=== PATIENT | female | born 1965 | race Caucasian/White ===

== ENCOUNTER → 2016-07-06 | Outpatient (CLI) | payer OTHER ==
[~2016-07-06] MED LIST: CHOL100010 PO; CLR10 PO; CYAN100T6 PO; ESCI10TA17 PO; PYRI100T4 PO; ZOLP6.252 PO
== END | disposition home or self-care (01) ==
LOC: C.PAPS 10:47
PROVIDERS: ATTEND Obstetrics & Gynecology
DX: Z12.4 Encounter for screening for malignant neoplasm of cervix (principal); R87.616 Satisfactory cervical smear but lacking transformation zone

== ENCOUNTER → 2016-12-15 | Outpatient (CLI) | payer OTHER ==
[2016-12-15 09:59] LABS: ALT/SGPT 24 U/L (12-78); AST/SGOT 25 U/L (15-37); BLOOD UREA NITROGEN 14 mg/dl (7-18); CALCIUM 8.6 mg/dl (8.5-10.1); CARBON DIOXIDE 29 mmol/L (21-32); CHLORIDE 108 mmol/L (98-107); GLUCOSE 91 mg/dl (70-99); MAGNESIUM 2.1 mg/dl (1.8-2.4); POTASSIUM 3.9 mmol/L (3.5-5.1); SODIUM 140 mmol/L (136-145)
[2016-12-15 10:08] LABS: ALB/GLOB RATIO 0.9 (0.9-2); ALKALINE PHOSPHATASE 61 U/L (45-117); CHOLESTEROL 185 mg/dl (0-200); CHOLESTEROL/HDL RATIO 2.6; HDL CHOLESTEROL 70 mg/dl; LDL CHOLESTEROL CALCULATED 90 mg/dl; THYROID STIMULATING HORMONE 0.454 uIu/ml (0.300-4.500); TRIGLYCERIDES 125 mg/dl (0-150); VERY LOW DENSITY LIPOPROT CALC 25 mg/dl
== END | disposition home or self-care (01) ==
LOC: C.LAB 08:21
PROVIDERS: ATTEND Nurse Practitioner Family
DX: Z00.00 Encounter for general adult medical examination without abnormal findings (principal); Z13.220 Encounter for screening for lipoid disorders; G47.00 Insomnia, unspecified; K21.0 Gastro-esophageal reflux disease with esophagitis; Z11.59 Encounter for screening for other viral diseases

== ENCOUNTER → 2017-10-10 | Outpatient (CLI) | payer OTHER | END | disposition home or self-care (01) | LOC: C.PAPS 17:59 | PROVIDERS: ATTEND Obstetrics & Gynecology | DX: Z12.4 Encounter for screening for malignant neoplasm of cervix (principal) ==

== ENCOUNTER 2019-03-07 13:38 | Observation (INO) ==
[2019-03-07] MEDS ORDERED: SODIUM CHLORIDE 0.9% 1000ML 1,000 ML IV ONE (14:02)
[2019-03-07] MEDS ORDERED: KETOROLAC TROMETHAMINE 15 MG/ML VIAL IV STA (14:02)
[2019-03-07] MEDS ORDERED: ONDANSETRON INJ 2 MG/ML 2 ML VIAL IV STA (14:02)
[2019-03-07 14:19] LABS: Basophils # (auto) 0.02 K/uL (0-0.2); Basophils % (auto) 0.2 %; Eosinophils # (auto) 0.14 K/uL (0-0.5); Eosinophils % (auto) 1.2 %; Hematocrit (blood only) 40.9 % (37-47); Hemoglobin 13.7 g/dL (12.0-16.0); Immature Granulocytes # (auto) 0.03 K/uL (0.00-0.02); Immature Granulocytes % (auto) 0.2 %; Lymphocytes # (auto) 1.31 K/uL (1.2-3.4); Lymphocytes % (auto) 10.8 %; Mean Corpuscular Hemoglobin 30.2 pg (25-34); Mean Corpuscular Hgb Conc 33.5 g/dL (32-36); Mean Corpuscular Volume 90.1 fL (80-100); Mean Platelet Volume 9.9 fL (7.4-10.4); Monocytes # (auto) 0.39 K/uL (0.11-0.59); Monocytes % (auto) 3.2 %; Neutrophils # (auto) 10.24 K/uL (1.4-6.5); Neutrophils % (auto) 84.4 %; Platelet Count 294 K/uL (130-400); RDW Coefficient of Variation 12.7 % (11.5-14.5); Red Blood Count 4.54 M/uL (4.2-5.4); White Blood Count 12.13 K/uL (4.8-10.8)
[2019-03-07 14:30] LABS: Partial Thromboplastin Time 27.2 Seconds (21.0-31.0); Prothrombin Time 9.8 Seconds (9.0-12.0)
[2019-03-07 14:31] LABS: D Dimer 910 ug/L FEU (0-500)
[2019-03-07 14:36] LABS: Alanine Aminotransferase 41 U/L (12-78); Albumin Level 3.5 gm/dl (3.4-5.0); Aspartate Aminotransferase 53 U/L (15-37); BUN Creatinine Ratio 13.4 (10-20); Bilirubin Direct < 0.1 mg/dl (0-0.2); Blood Urea Nitrogen 13 mg/dl (7-18); Calcium 9.2 mg/dl (8.5-10.1); Carbon Dioxide 26 mmol/L (21-32); Chloride 106 mmol/L (98-107); Creatinine Clr Calc Pharmacy 62.1 ml/min; Est GFR (African American) 76.7; Est GFR (Non-African American) 66.2; Glucose 109 mg/dl (70-99); Lipase 122 U/L (73-393); Potassium 3.5 mmol/L (3.5-5.1); Sodium 138 mmol/L (136-145)
[2019-03-07 14:41] LABS: Alkaline Phosphatase 101 U/L (45-117); Bilirubin,Total 0.3 mg/dl (0.2-1); Total Protein 8.1 gm/dl (6.4-8.2); Troponin I < 0.015 ng/ml (0-0.045)
--- NOTE | 2019-03-07 14:46 | XRay Report ---
XR abdomen 2V w PA chest CLINICAL HISTORY: 53 years-old Female presenting with epigastric pain. TECHNIQUE: PA view of the chest and supine and upright views of the abdomen were obtained. COMPARISON: None. FINDINGS: Cardiomediastinal silhouette normal. Lungs are hyperinflated. No focal opacity. No large effusion or pneumothorax. Mild gaseous distention of the stomach. Nonobstructive bowel gas pattern. No gross pneumoperitoneum. Allowing for bowel gas and stool, no calcifications to suggest nephrolithiasis. Calcifications in the pelvis could relate to degenerated fibroids. Dextroscoliotic curvature of the thoracic spine and compensatory levoscoliotic curvature of the lumba r spine. IMPRESSION: 1. No acute cardiopulmonary disease. 2. Mild gaseous distention of the stomach, nonspecific. No bowel obstruction. 3. S-shaped scoliotic curvature of the spine. ACT 112: Negative or not required by law. Electronically signed by: Sarthak Adorno M.D. 03/07/2019 2:45 PM
[2019-03-07] MEDS ORDERED: IOVERSOL 100ml IV PRN (15:02)
--- NOTE | 2019-03-07 15:07 | Ultrasound Report ---
ULTRASOUND RIGHT UPPER QUADRANT ABDOMEN CLINICAL HISTORY: Right upper quadrant abdominal pain. COMPARISON STUDY: Abdominal CT dated 07/13/2011. TECHNIQUE: Real-time, grayscale, and color flow sonography of the right upper quadrant of the abdomen was performed. Images are reviewed in the transverse and longitudinal planes. FINDINGS: Liver: The liver is normal in size and echotexture. There is no intrahepatic biliary ductal dilatatio n. The main portal vein is patent. Gallbladder: There are numerous small shadowing gallstones. The gallbladder is distended. There is no gallbladder wall thickening or pericholecystic fluid. A sonographic Dior's sign is reportedly abse nt. The common bile duct measures up to 0.4 cm in diameter. Pancreas: Visualized portions of the pancreatic head and body are normal in appearance. The splenic v ein is patent. Right kidney: Survey images of the right kidney demonstrate normal size and echotexture. There is no hydronephrosis. Ascites: None. IMPRESSION: 1. Cholelithiasis with a distended gallbladder. A sonographic Dior's sign is reportedly absent and the gallbladder wall is not thickened. Findings are equivocal for acute cholecystitis which is not en tirely excluded. If clinically warranted a nuclear hepatobiliary scan could be considered for further assessment. 2. There is no intra or extrahepatic iliac artery ductal dilatation. ACT 112: Negative or not required by law. Electronically signed by: Quique Cowan M.D. 03/07/2019 3:05 PM
--- NOTE | 2019-03-07 15:12 | CT Scan Report ---
CT angio chest PE protocol CLINICAL HISTORY: 53 years-old Female presenting with left-sided chest pain, clinical concern for pul monary embolus. TECHNIQUE: Multidetector CT angiography of the chest was performed after administration of intravenou s contrast. 3-D volumetric and/or maximum intensity projection (MIP) images were subsequently reconst ructed for review. IV contrast: 77 mL of Optiray 320. One or more dose lowering techniques were used consistent with the principles of ALARA (as low as reasonably achievable), including automatic exposu re control, mA or kV adjustment to individual patient size, and/or use of iterative reconstruction. COMPARISON: None. CT DOSE (mGy.cm): The estimated cumulative dose is 262.17 mGy.cm. FINDINGS: Pile Driver Operator topogram: Unremarkable. Pulmonary vasculature: The study is adequate for assessment of the pulmonary vascular tree. No filling defect within the pul monary arteries to suggest embolus. Main pulmonary artery is not enlarged. No flattening of the inter ventricular septum. No intracardiac filling defect. No reflux of contrast into the hepatic veins. Remaining chest: Soft tissues: Normal thyroid and thoracic inlet. No axillary, supraclavicular, mediastinal, or hilar lymphadenopathy. Normal aorta. Normal heart size. No pericardial or pleural effusion. Upper abdomen n ormal. Lungs and airways: No pneumothorax. Central airways patent. Pulmonary arteries are not significantly enlarged relative to adjacent bronchi. No interlobular septal thickening. Minimal dependent changes l ikely atelectasis. 3 mm solid nodule in the anterior segment of the right upper lobe (series 4 image 145). Calcified granuloma in the right lower lobe. Solid 4 mm peripheral right lower lobe nodule (ser ies 4 image 128). Solid triangular peribronchovascular 4 mm nodule in the superior lingula (series 4 image 150). Musculoskeletal: Normal osseous structures. IMPRESSION: 1. No evidence of pulmonary embolus. No acute intrathoracic pathology. 2. Multiple solid pulmonary nodules measuring up to 4 mm. Follow-up per Fleischner Society 2017 darrell mmendations below. Summary of Fleischner Society 2017 Recommendations (Bib Myers et al. Guidelines for management of i ncidental pulmonary nodules detected on CT images: From the Fleischner Society 2017. Radiology 2017; 284: 228-243.) SOLID NODULES Single nodule; size < 6 mm * Low risk patients: No routine follow-up * High risk patients: Optional CT at 12 months Single nodule; size 6-8 mm * Low risk patients: CT at 6-12 months, then consider CT at 18-24 months * High risk patients: CT at 6-12 months, then at 18-24 months Single nodule; size > 8 mm * Either low or high risk patients: Considered CT at 3 months, PET/CT, or tissue sampling Multiple nodules; size < 6 mm * Low risk patients: No routine follow up * High risk patients: Optional CT at 12 months Multiple nodules; size 6-8 mm * Low risk patients: CT at 3-6 months, then consider CT at 18-24 months * High risk patients: CT at 3-6 months, then at 18-24 months Multiple nodules; size > 8 mm * Low risk patients: CT at 3-6 months, then consider at 18-24 months * High risk patients: CT at 3-6 months, then at 18-24 months SUBSOLID NODULES Single ground-glass nodule * Nodule size < 6 mm: No routine follow-up * Nodule size > or = 6 mm: CT at 6-12 months to confirm persistence, then CT every 2 years until 5 y ears Single part-solid nodule * Nodule size < 6 mm: No routine follow-up * Nodules size > or = 6 mm: CT at 3-6 months to confirm persistence. If unchanged and solid componen t remains < 6 mm, annual CT should be performed for 5 years Multiple nodules * Nodule size < 6 mm: CT at 3-6 months. If stable, consider CT at 2 and 4 years. * Nodules size > or = 6 mm: CT at 3-6 months. Subsequent management based on the most suspicious nod ule(s) NOTE: 1) These guidelines apply to incidental nodules. These guidelines do NOT apply to patients younger th an 35 years, immunocompromised patients, or patients with cancer. 2) Risk categories: * Low risk patients: Minimal or absent history of smoking and/or other known risk factors * High risk patients: History of smoking, exposure to other carcinogens, emphysema, fibrosis, upper lobe location, family history of lung cancer, etc. 3) If a nodule up to 8 mm is partly solid or is ground glass, further follow-up is required after 24 months to exclude possible slow growing adenocarcinoma. ACT 112: Negative or not required by law. Electronically signed by: Sarthak Adorno M.D. 03/07/2019 3:11 PM
[2019-03-07] MEDS ORDERED: cefTRIAXone SODIUM 1,000 MG/50 ML BAG IV STA (15:43)
[2019-03-07] MEDS ORDERED: metroNIDAZOLE 500 MG/100 ML BAG IV STA (15:43)
--- NOTE | 2019-03-07 16:26 | History & Physical Report ---
Date of Service March 07, 2019 Assessment & Plan (1) Abdominal pain: 53-year-old female was admitted on 07 March 2019 for abdominal pain and cholelithiasis, possible cholecystitis. Abdominal pain, Cholelithiasis: Acute onset of upper abdominal pain overnight, worsening this a.m. Positive N/V without diarrhea or known fever. No known underlying gallbladder disease. Presently positive [place] sign but not peritoneal in general abdomen. DDx include acute cholecystitis vs other g allbladder path vs acute gastritis. - In ED, afebrile, some periods of bradycardia, transiently hypertensive, with normal room SpO2. WBC 12. AST 53, ALT + AP + lipase all negative. Troponin negative. Right upper ultrasound notes cholelithiasis with a distended gallbladder, overall equivocal for acute cholecystitis. - In ED, treated with normal saline IVF, Toradol, Zofran, and given single doses of ceftriaxone + Flagyl. - Will continue pain control with toradol IV prn initially and general surgery consult. Continue on cefuroxime and flagyl as well. - Ordered HIDA scan (goal for 8 am tomorrow). Request no pain medications between midnight and 8 am. Notify on-call hospitalist if issues. - History of tubal ligation, but will still check urine hCG as a precaution. Pulmonary nodules: Seen on CTA chest evaluation for PE (negative for this). Follow-up per guidelines and PCP. Informed patient of the same. Ongoing medical issues: - Reflux esophagitis: Patient says diagnosis was years ago and does not take medication for this. - Depression: Continue home escitalopram. - Perimenopausal vasomotor symptoms: Continue home Premphase. - ? CARLOS ALBERTO: Pending home sleep study. Will provide CPAP while here. Code status: Full code. Diet: NPO (including meds) after midnight for planned HIDA scan. DVT prophy: SCDs for now given may have surgery acutely. PT/OT: Deferred. Disbo: Admit to medsurg for observation. (2) Cholelithiasis: (3) Pulmonary nodule seen on imaging study: (4) Reflux esophagitis: (5) Depression: (6) Perimenopausal vasomotor symptoms: History of Present Illness Primary Care Provider: Nathan Rocha III, MEDIA MARKETING SPECIALIST 53-year-old female says that around 10:30 PM last night she had the feeling of "indigestion". She has had similar feeling about 3 times in the past 2 months. She was able to get some sleep but woke up with the same discomfort. This p rogressively worsened to include nonbloody but positive bilious nausea and vomiting this a.m. Presently points to her epigastric and bilateral upper quadrants as site of discomfort. Denies any diarrhea and had a normal bowel movement this morning. No recent fevers or known recent illness. Denies any known previous gallbladder issues, urinary symptoms, chest pain or shortness of breath, or other acute concerns. - Past medical history includes insomnia, depression, reflux esophagitis, menorrhagia, diverticulosis. - Past surgical history includes tubal ligation, breast surgery. - Social history includes denying tobacco use. Occasional beer drinker on the weekends. Lives with daughter. 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 Allergies Allergy/AdvReac Type Severity Reaction Status Date / Time No Known Drug Allergies Allergy Verified 03/07/19 15:14 Home Medications Home Medications Medication Instructions Recorded Confirmed Type conj estrogen-medroxyprogesterone 1 tab PO DAILY #28 tab 11/15/18 03/07/19 Rx 0.625 mg(14)/0.625 mg-5mg(14) tablet escitalopram oxalate 20 mg tablet 20 mg PO DAILY #90 tab 11/20/18 03/07/19 Rx loratadine 10 mg tablet 10 mg PO DAILY 01/08/19 03/07/19 History zolpidem 6.25 mg tablet,extended 6.25 mg PO HS PRN #10 tab 01/20/19 03/07/19 Rx release,multiphase cholecalciferol (vitamin D3) 5,000 5,000 units PO DAILY #30 cap 02/12/19 03/07/19 Rx unit capsule Past Med/Surg History Medical History History of breast pain Tuboplasty or vasoplasty after previous sterilization Surgical History Hx of breast surgery S/P tubal ligation Family History Sister Breast cancer Father Malignant neoplasm of skin Social History Preferred Language: Kiswahili Communication Ability: Effective Drill Operator Required: No Beliefs That Will Affect Care: None marital status: Seperated marital status details: Legally seperated with pending divorce Current Living Situation: Family Current Living Situation Comment: w/ daughter current occupational status: employed 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 Other Information That Helps Us Care for You: No Feels Safe at Home: Yes Safety Concerns: Feels Safe At This Time Smoking Status: Never smoker Do You Dip or Chew Tobacco: No ; Second Hand Exposure: No ; Tobacco Cessation Education Requested by Patient: No Hx Alcohol Use: Yes Alcohol type: beer Alcohol Intake Frequency: Weekly Alcohol Intake Frequency Comment: 4/week Hx Substance Use: No Other Diet Comment: no specific diet caffeine: Yes (three cups a day) during the past year weight has: remained stable Dental Care, Regularly: Yes Physical Activity Frequency: Does not Exercise Seatbelt Use: always Do you think of yourself as: straight/heterosexual Review of Systems Review of Systems: Constitutional: Denies fevers, chills, focal weakness Eyes: Denies any visual loss or diplopia ENT: Denies any ear/nose/throat pain or difficulty speaking or swallowing Respiratory: Denies any dyspnea, cough, hemoptysis Cardiovascular: Denies any chest pain or feeling of edema Gastrointestinal: Positive nausea, vomiting, and abdominal pain. Denies diarrhea. Musculoskeletal: Denies any acute extremity pains, myalgias, or focal weakness Skin: Denies any known acute rashes or lesions Neuro: Denies any headache, acute focal weakness or numbness, or difficulties with speech or swallow. Physical Exam Physical Exam: GENERAL: Awake, alert, well-appearing, in no acute distress. HENT: Normocephalic, atraumatic. Oropharynx unremarkable. EYES: Normal conjunctiva. Sclera non-icteric. NECK: Inspection normal. Supple and full ROM. No nuchal rigidity. CARDIAC: +S1S2 RRR, no murmurs. RESPIRATORY: Clear to auscultation. No wheezes or rales. Normal respiratory effort. GI: +BS, soft, non-distended. No rebound or guarding. Positive right > left upper abdominal tenderness to palpation. No tenderness in bilateral lower quad rants. Positive Dior sign. EXTREMITIES: No pedal edema or calf tenderness. Moving all extremities naturally and easily. NEURO: No gross neuro deficits. Results & Data Vital Signs (Past 12 Hours) Vital Signs Temp Pulse Resp BP Pulse Ox 03/07/19 15:05 74 24 121/57 L 97 03/07/19 15:04 76 12 03/07/19 14:30 127/68 98 03/07/19 14:20 51 L 14 96 03/07/19 14:19 52 L 15 152/66 H 97 03/07/19 14:00 59 L 20 03/07/19 13:58 97 03/07/19 13:57 53 L 15 03/07/19 13:39 36.8 C 79 20 150/63 H 97 Laboratory Results 03/07/19 03/07/19 03/07/19 Range/Units 13:54 13:54 13:54 WBC (4.8-10.8) K/uL RBC (4.2-5.4) M/uL Hgb (12.0-16.0) g/dL Hct (37-47) % MCV (80-100) fL MCH (25-34) pg MCHC (32-36) g/dL RDW Std Deviation (36.4-46.3) fL RDW Coeff of Red (11.5-14.5) % Plt Count (130-400) K/uL MPV (7.4-10.4) fL Immature Gran % (Auto) % Neut % (Auto) % Lymph % (Auto) % Cooke % (Auto) % Eos % (Auto) % Baso % (Auto) % Immature Gran # (Auto) (0.00-0.02) K/uL Neut # (Auto) (1.4-6.5) K/uL Lymph # (Auto) (1.2-3.4) K/uL Cooke # (Auto) (0.11-0.59) K/uL Eos # (Auto) (0-0.5) K/uL Baso # (Auto) (0-0.2) K/uL PT 9.8 (9.0-12.0) Seconds INR 1.0 (0.9-1.1) APTT 27.2 (21.0-31.0) Seconds PTT Ratio 1.0 D-Dimer Cancelled 910 H* (0-500) ug/L FEU Sodium 138 (136-145) mmol/L Potassium 3.5 (3.5-5.1) mmol/L Chloride 106 (98-107) mmol/L Carbon Dioxide 26 (21-32) mmol/L Anion Gap 7.0 (3-11) BUN 13 (7-18) mg/dl Creatinine 0.97 (0.6-1.2) mg/dl Est Cr Clr Drug Dosing 62.1 ml/min Est GFR ( Amer) 76.7 Est GFR (Non-Af Amer) 66.2 BUN/Creatinine Ratio 13.4 (10-20) Glucose 109 H (70-99) mg/dl Calcium 9.2 (8.5-10.1) mg/dl Total Bilirubin 0.3 (0.2-1) mg/dl Direct Bilirubin < 0.1 (0-0.2) mg/dl AST 53 H (15-37) U/L ALT 41 (12-78) U/L Alkaline Phosphatase 101 (45-117) U/L Troponin I < 0.015 (0-0.045) ng/ml Total Protein 8.1 (6.4-8.2) gm/dl Albumin 3.5 (3.4-5.0) gm/dl Lipase 122 (73-393) U/L 03/07/19 Range/Units 13:54 WBC 12.13 H (4.8-10.8) K/uL RBC 4.54 (4.2-5.4) M/uL Hgb 13.7 (12.0-16.0) g/dL Hct 40.9 (37-47) % MCV 90.1 (80-100) fL MCH 30.2 (25-34) pg MCHC 33.5 (32-36) g/dL RDW Std Deviation 42.0 (36.4-46.3) fL RDW Coeff of Red 12.7 (11.5-14.5) % Plt Count 294 (130-400) K/uL MPV 9.9 (7.4-10.4) fL Immature Gran % (Auto) 0.2 % Neut % (Auto) 84.4 % Lymph % (Auto) 10.8 % Cooke % (Auto) 3.2 % Eos % (Auto) 1.2 % Baso % (Auto) 0.2 % Immature Gran # (Auto) 0.03 H (0.00-0.02) K/uL Neut # (Auto) 10.24 H (1.4-6.5) K/uL Lymph # (Auto) 1.31 (1.2-3.4) K/uL [place]oke # (Auto) 0.39 (0.11-0.59) K/uL Eos # (Auto) 0.14 (0-0.5) K/uL Baso # (Auto) 0.02 (0-0.2) K/uL PT (9.0-12.0) Seconds INR (0.9-1.1) APTT (21.0-31.0) Seconds PTT Ratio D-Dimer (0-500) ug/L FEU Sodium (136-145) mmol/L Potassium (3.5-5.1) mmol/L Chloride (98-107) mmol/L Carbon Dioxide (21-32) mmol/L Anion Gap (3-11) BUN (7-18) mg/dl Creatinine (0.6-1.2) mg/dl Est Cr Clr Drug Dosing ml/min Est GFR ( Amer) Est GFR (Non-Af Amer) BUN/Creatinine Ratio (10-20) Glucose (70-99) mg/dl Calcium (8.5-10.1) mg/dl Total Bilirubin (0.2-1) mg/dl Direct Bilirubin (0-0.2) mg/dl AST (15-37) U/L ALT (12-78) U/L Alkaline Phosphatase (45-117) U/L Troponin I (0-0.045) ng/ml Total Protein (6.4-8.2) gm/dl Albumin (3.4-5.0) gm/dl Lipase (73-393) U/L Medications Administered Ioversol (Optiray 320 100ml) 77 ml IV ONCE PRN PRN Reason: Interaction Checking Stop: 03/11/19 15:01 Last Admin: 03/07/19 15:03 Dose: 77 ml Documented by: [id number] Discontinued Medications Sodium Chloride (Nss 1000ml) 1,000 mls @ 999 mls/hr IV .Q1H1M ONE Stop: 03/07/19 15:02 Last Infusion: 03/07/19 15:20 Dose: 0 mls/hr Documented by: [id number] Admin: 03/07/19 14:19 Dose: 999 mls/hr Documented by: [id number] Ceftriaxone Sodium (Rocephin) 1,000 mg in 50 mls @ 100 mls/hr IV NOW STA Stop: 03/07/19 16:12 Last Admin: 03/07/19 15:49 Dose: 100 mls/hr Documented by: [id number] Ketorolac Tromethamine (Toradol) 15 mg IV NOW STA Stop: 03/07/19 14:03 Last Admin: 03/07/19 14:20 Dose: 15 mg Documented by: [id number] Ondansetron HCl (Zofran) 4 mg IV NOW STA Stop: 03/07/19 14:03 Last Admin: 03/07/19 14:20 Dose: 4 mg Documented by: [id number] Code Status & VTE Plan Code Status Full code VTE Prophylaxis Plan VTE Prophylaxis will be ordered: Yes Supervising Physician Co-Signing Physician Notes Pt seen and examined at the bedside with . I was involved in creating assessment and plan with Dr. Fowler and I agree with his H&P. Physical Exam: GENERAL: Awake, alert, well-appearing, in no acute distress. HENT: Normocephalic, atraumatic. Oropharynx unremarkable. EYES: Normal conjunctiva. Sclera non-icteric. NECK: Inspection normal. Supple and full ROM. No nuchal rigidity. CARDIAC: +S1S2 RRR, no murmurs. RESPIRATORY: Clear to auscultation. No wheezes or rales. Normal respiratory effort. GI: +BS, soft, non-distended. No rebound or guarding. Positive right > left upper abdominal tenderness to palpation. No tenderness in bilateral lower quadrants. Positive Dior sign. EXTREMITIES: No pedal edema or calf tenderness. Moving all extremities naturally and easily. NEURO: No gross neuro deficits. Resident Activity Tracking Resident Involvement: Resident Care Provided Care Provided: Adult [facility]
--- NOTE | 2019-03-07 17:11 | Surgery Consultation ---
Date of Consultation March 07, 2019 Assessment & Plan (1) Abdominal pain: 53 year-old female with 1 day history of upper abdominal pain with associated bloating. labs show mild leukocytosis of 12k with mild elevation in AST. Ultrasound showing distended gallbladder with gallstones however no pericholecystic fluid or gallbladder wall thickening. She does have history GERD with dysphagia with EGD 5 years ago. t. bili and rest of LFTS wnl. DDX: gastritis, biliary colic, early acute cholecystitis vs chronic cholecystitis Plan: Medicine admitting patient. Plan for HIDA scan in morning to r/o acute cholecystitis. If negative patient can be seen as outpatient to schedule elective lap kaila if she continues to have symptoms of biliary colic. If HIDA scan positive, plan for cholecystectomy tomorrow IV fluids IV abx NPO after midnight, no narcotics for HIDA scan in am. Consider PO PPI Dr. Fleming has seen and examined pt, agrees with above. History of Present Illness Reason for Consultation: RUQ abdominal pain gallstones Requesting Physician: Dr. Bautista Attending Physician: Dr. Bautista History of Present Illness Lelsee is 53 yaer-old female who presented to emergency department today with complaint of midline upper abdominal pain that started around 10:30 last evening. States pain was burning sensation with some nausea. Had steak for dinner last evening. States she has had pain like this before two other times. Unsure if this was after eating. No prior history of gallbladder troubles. She states she does have associated bloating after eating. Had history of dysphagia about 5 years ago with EGD which showed GERD. Has never required PPI treatment. Still has some dysphagia but no heartburn or reflux. Denies diarrhea, blood in stools, black/tarry stools, difficulty urinating. Allergies Allergy/AdvReac Type Severity Reaction Status Date / Time No Known Drug Allergies Allergy Verified 03/07/19 15:14 Home Medications Home Medications Medication Instructions Recorded Confirmed Type conj estrogen-medroxyprogesterone 1 tab PO DAILY #28 tab 11/15/18 03/07/19 Rx 0.625 mg(14)/0.625 mg-5mg(14) tablet escitalopram oxalate 20 mg tablet 20 mg PO DAILY #90 tab 11/20/18 03/07/19 Rx loratadine 10 mg tablet 10 mg PO DAILY 01/08/19 03/07/19 History zolpidem 6.25 mg tablet,extended 6.25 mg PO HS PRN #10 tab 01/20/19 03/07/19 Rx release,multiphase cholecalciferol (vitamin D3) 5,000 5,000 units PO DAILY #30 cap 02/12/19 03/07/19 Rx unit capsule Patient History Social History Preferred Language: Lithuanian Communication Ability: Effective Assistant Manager Retail Required: No Beliefs That Will Affect Care: None marital status: Seperated marital status details: Legally seperated with pending divorce Current Living Situation: Family Current Living Situation Comment: w/ daughter current occupational status: employed 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 Other Information That Helps Us Care for You: No Feels Safe at Home: Yes Safety Concerns: Feels Safe At This Time Smoking Status: Never smoker Do You Dip or Chew Tobacco: No ; Second Hand Exposure: No ; Tobacco Cessation Education Requested by Patient: No Hx Alcohol Use: Yes Alcohol type: beer Alcohol Intake Frequency: Weekly Alcohol Intake Frequency Comment: 4/week Hx Substance Use: No Other Diet Comment: no specific diet caffeine: Yes (three cups a day) during the past year weight has: remained stable Dental Care, Regularly: Yes Physical Activity Frequency: Does not Exercise Seatbelt Use: always Do you think of yourself as: straight/heterosexual Review of Systems Review of Systems: All systems reviewed & are unremarkable except as noted in HPI & below Physical Exam Constitutional: WD/WN, vitals as above no acute distress Respiratory: normal respiratory effort, lungs clear to auscultation Cardiovascular: RRR, no murmur, no edema Gastrointestinal (Abdomen): Inspection/Auscultation: abdomen normal to inspection; abdomen not distended Percussion/Palpation: + abdomen tender (RUQ) and abdomen soft; no guarding and abdomen not rigid Skin: no rashes, warm and dry Psychiatric: A+Ox3, euthymic affect Results & Data Vital Signs (Past 12 Hours) Vital Signs Temp Pulse Resp BP Pulse Ox 03/07/19 15:05 74 24 121/57 L 97 03/07/19 15:04 76 12 03/07/19 14:30 127/68 98 03/07/19 14:20 51 L 14 96 03/07/19 14:19 52 L 15 152/66 H 97 03/07/19 14:00 59 L 20 03/07/19 13:58 97 03/07/19 13:57 53 L 15 03/07/19 13:39 36.8 C 79 20 150/63 H 97 Laboratory Results 03/07/19 03/07/19 03/07/19 Range/Units 13:54 13:54 13:54 WBC (4.8-10.8) K/uL RBC (4.2-5.4) M/uL Hgb (12.0-16.0) g/dL Hct (37-47) % MCV (80-100) fL MCH (25-34) pg MCHC (32-36) g/dL RDW Std Deviation (36.4-46.3) fL RDW Coeff of Red (11.5-14.5) % Plt Count (130-400) K/uL MPV (7.4-10.4) fL Immature Gran % (Auto) % Neut % (Auto) % Lymph % (Auto) % [place] % (Auto) % Eos % (Auto) % Baso % (Auto) % Immature Gran # (Auto) (0.00-0.02) K/uL Neut # (Auto) (1.4-6.5) K/uL Lymph # (Auto) (1.2-3.4) K/uL [place] # (Auto) (0.11-0.59) K/uL Eos # (Auto) (0-0.5) K/uL Baso # (Auto) (0-0.2) K/uL PT 9.8 (9.0-12.0) Seconds INR 1.0 (0.9-1.1) APTT 27.2 (21.0-31.0) Seconds PTT Ratio 1.0 D-Dimer Cancelled 910 H* (0-500) ug/L FEU Sodium 138 (136-145) mmol/L Potassium 3.5 (3.5-5.1) mmol/L Chloride 106 (98-107) mmol/L Carbon Dioxide 26 (21-32) mmol/L Anion Gap 7.0 (3-11) BUN 13 (7-18) mg/dl Creatinine 0.97 (0.6-1.2) mg/dl Est Cr Clr Drug Dosing 62.1 ml/min Est GFR ( Amer) 76.7 Est GFR (Non-Af Amer) 66.2 BUN/Creatinine Ratio 13.4 (10-20) Glucose 109 H (70-99) mg/dl Calcium 9.2 (8.5-10.1) mg/dl Total Bilirubin 0.3 (0.2-1) mg/dl Direct Bilirubin < 0.1 (0-0.2) mg/dl AST 53 H (15-37) U/L ALT 41 (12-78) U/L Alkaline Phosphatase 101 (45-117) U/L Troponin I < 0.015 (0-0.045) ng/ml Total Protein 8.1 (6.4-8.2) gm/dl Albumin 3.5 (3.4-5.0) gm/dl Lipase 122 (73-393) U/L 03/07/19 Range/Units 13:54 WBC 12.13 H (4.8-10.8) K/uL RBC 4.54 (4.2-5.4) M/uL Hgb 13.7 (12.0-16.0) g/dL Hct 40.9 (37-47) % MCV 90.1 (80-100) fL MCH 30.2 (25-34) pg MCHC 33.5 (32-36) g/dL RDW Std Deviation 42.0 (36.4-46.3) fL RDW Coeff of Red 12.7 (11.5-14.5) % Plt Count 294 (130-400) K/uL MPV 9.9 (7.4-10.4) fL Immature Gran % (Auto) 0.2 % Neut % (Auto) 84.4 % Lymph % (Auto) 10.8 % [place] % (Auto) 3.2 % Eos % (Auto) 1.2 % Baso % (Auto) 0.2 % Immature Gran # (Auto) 0.03 H (0.00-0.02) K/uL Neut # (Auto) 10.24 H (1.4-6.5) K/uL Lymph # (Auto) 1.31 (1.2-3.4) K/uL [place] # (Auto) 0.39 (0.11-0.59) K/uL Eos # (Auto) 0.14 (0-0.5) K/uL Baso # (Auto) 0.02 (0-0.2) K/uL PT (9.0-12.0) Seconds INR (0.9-1.1) APTT (21.0-31.0) Seconds PTT Ratio D-Dimer (0-500) ug/L FEU Sodium (136-145) mmol/L Potassium (3.5-5.1) mmol/L Chloride (98-107) mmol/L Carbon Dioxide (21-32) mmol/L Anion Gap (3-11) BUN (7-18) mg/dl Creatinine (0.6-1.2) mg/dl Est Cr Clr Drug Dosing ml/min Est GFR ( Amer) Est GFR (Non-Af Amer) BUN/Creatinine Ratio (10-20) Glucose (70-99) mg/dl Calcium (8.5-10.1) mg/dl Total Bilirubin (0.2-1) mg/dl Direct Bilirubin (0-0.2) mg/dl AST (15-37) U/L ALT (12-78) U/L Alkaline Phosphatase (45-117) U/L Troponin I (0-0.045) ng/ml Total Protein (6.4-8.2) gm/dl Albumin (3.4-5.0) gm/dl Lipase (73-393) U/L Diagnostic Findings ULTRASOUND RIGHT UPPER QUADRANT ABDOMEN CLINICAL HISTORY: Right upper quadrant abdominal pain. COMPARISON STUDY: Abdominal CT dated 07/13/2011. TECHNIQUE: Real-time, grayscale, and color flow sonography of the right upper quadrant of the abdomen was performed. Images are reviewed in the transverse and longitudinal planes. FINDINGS: Liver: The liver is normal in size and echotexture. There is no intrahepatic biliary ductal dilatation. The main portal vein is patent. Gallbladder: There are numerous small shadowing gallstones. The gallbladder is distended. There is no gallbladder wall thickening or pericholecystic fluid. A sonographic Dior's sign is reportedly absent. The common bile duct measures up to 0.4 cm in diameter. Pancreas: Visualized portions of the pancreatic head and body are normal in appearance. The splenic vein is patent. Right kidney: Survey images of the right kidney demonstrate normal size and echotexture. There is no hydronephrosis. Ascites: None. IMPRESSION: 1. Cholelithiasis with a distended gallbladder. A sonographic Dior's sign is reportedly absent and the gallbladder wall is not thickened. Findings are equivocal for acute cholecystitis which is not entirely excluded. If clinically warranted a nuclear hepatobiliary scan could be considered for further assessment. 2. There is no intra or extrahepatic iliac artery ductal dilatation.
[2019-03-07] MEDS ORDERED: KETOROLAC TROMETHAMINE 15 MG/ML VIAL IV PRN (18:11)
[2019-03-07] MEDS ORDERED: OXYCODONE/ACETAMINOPHEN 5mg/325mg TAB PO PRN (18:11)
[2019-03-07 18:27] LABS: Appearance Urine Clear (Clear); Bilirubin Urine Negative (Negative); Blood Urine Negative (Negative); Color Urine Yellow; Glucose Urine UA Negative (Negative); Ketones Urine 1+ (Negative); Leukocyte Esterase Urine Negative (Negative); Nitrite Urine Negative (Negative); Protein Urine Negative (Negative); Specific Gravity Urine > 1.045 (1.000-1.030); Urobilinogen Urine Negative (Negative)
[2019-03-07] MEDS ORDERED: metroNIDAZOLE 500 MG/100 ML BAG IV SCH (18:30)
--- NOTE | 2019-03-07 19:48 | Emergency Department Note ---
Entered by Re Alvarez acting as a scribe for Aime Saul History of Present Illness General Chief complaint: Chest Pain Stated complaint: VOMITING Time Seen by Provider: 03/07/19 13:49 Source: patient History of Present Illness Onset (ago): day(s) (last night) Location: chest Pain Consistency: + other (persistent) Maximum Pain Intensity: 1 Quality: + burning Associated symptoms: + denies other symptoms (hemoptysis, hematemesis, dark black vomit, hematuria, hematochezia, dysuria), + nausea/vomiting and + other (abdominal pain); no cough and no fever/chills (fever) The patient is a 53 year old female who presents to the Emergency Room with comp laints of persistent chest pain starting last night. The patient states that last night she started having what felt like indigestion in the center of her upper abdomen after eating steak for dinner. She states that she had laid down with her feet up. She reports that she assumed as she has had this twice before that it would go away by morning. The patient states that this morning though, she woke up and the burning pain was still there. She states that she tried eating breakfast, but ended up vomiting. She states that since then she has been vomiting up bile. She reports that the pain then moved into her left chest and she became concerned so she came to the ED. The patient notes that she is on progesterone. She notes that she does drink alcohol and last drank over the weekend. The patient denies a cough, hemoptysis, fever, hematemesis, dark black vomit, hematuria, hematochezia, dysuria, recent travel, a history of blood clots, a history of an appendectomy, a history of a cholecystectomy, eating anything out of the ordinary, recent surgeries, and recent trauma. Home Medications Home Medications Medication Instructions Recorded Confirmed Type conj estrogen-medroxyprogesterone 1 tab PO DAILY #28 tab 11/15/18 03/07/19 Rx 0.625 mg(14)/0.625 mg-5mg(14) tablet escitalopram oxalate 20 mg tablet 20 mg PO DAILY #90 tab 11/20/18 03/07/19 Rx loratadine 10 mg tablet 10 mg PO DAILY 01/08/19 03/07/19 History zolpidem 6.25 mg tablet,extended 6.25 mg PO HS PRN #10 tab 01/20/19 03/07/19 Rx release,multiphase cholecalciferol (vitamin D3) 5,000 5,000 units PO DAILY #30 cap 02/12/19 03/07/19 Rx unit capsule Allergies Allergy/AdvReac Type Severity Reaction Status Date / Time No Known Drug Allergies Allergy Verified 03/07/19 15:14 Past Med/Surg History Medical History History of breast pain Tuboplasty or vasoplasty after previous sterilization Surgical History Hx of breast surgery S/P tubal ligation Family History Sister Breast cancer Father Malignant neoplasm of skin Social History Preferred Language: Lao Communication Ability: Effective Human Resources Admin Required: No Beliefs That Will Affect Care: None marital status: Seperated marital status details: Legally seperated with pending divorce Current Living Situation: Family Current Living Situation Comment: w/ daughter current occupational status: employed current occupation: [employer] Other Information That Helps Us Care for You: No Feels Safe at Home: Yes Safety Concerns: Feels Safe At This Time Smoking Status: Never smoker Do You Dip or Chew Tobacco: No ; Second Hand Exposure: No ; Tobacco Cessation Education Requested by Patient: No Hx Alcohol Use: Yes Alcohol type: beer Alcohol Intake Frequency: Weekly Alcohol Intake Frequency Comment: 4/week Hx Substance Use: No Other Diet Comment: no specific diet caffeine: Yes (three cups a day) during the past year weight has: remained stable Dental Care, Regularly: Yes Physical Activity Frequency: Does not Exercise Seatbelt Use: always Do you think of yourself as: straight/heterosexual Review of Systems See HPI for pertinent positives & negatives. and A total of 10 systems reviewed and were otherwise negative Physical Exam Vital Signs Vital Signs - 24 hr 03/07/19 13:39 03/07/19 13:57 03/07/19 13:58 Temperature 36.8 C Temperature Source Oral Pulse Rate 79 53 L Respiratory Rate 20 15 Blood Pressure 150/63 H Blood Pressure Mean 92 Pulse Oximetry 97 97 Oxygen Delivery Method Room Air Room Air Sepsis Recent Fever Within 48 Hours No Sepsis New/Unexplained Change in Mental Status No Sepsis Action Taken by Nursing No Action Required 03/07/19 14:00 03/07/19 14:19 03/07/19 14:20 Temperature Temperature Source Pulse Rate 59 L 52 L 51 L Respiratory Rate 20 15 14 Blood Pressure 152/66 H Blood Pressure Mean 83 Pulse Oximetry 97 96 Oxygen Delivery Method Room Air Room Air Sepsis Recent Fever Within 48 Hours Sepsis New/Unexplained Change in Mental Status Sepsis Action Taken by Nursing 03/07/19 14:30 03/07/19 15:04 03/07/19 15:05 Temperature Temperature Source Pulse Rate 76 74 Respiratory Rate 12 24 Blood Pressure 127/68 121/57 L Blood Pressure Mean 89 76 Pulse Oximetry 98 97 Oxygen Delivery Method Room Air Room Air Sepsis Recent Fever Within 48 Hours Sepsis New/Unexplained Change in Mental Status Sepsis Action Taken by Nursing 03/07/19 15:06 03/07/19 15:30 03/07/19 15:31 Temperature Temperature Source Pulse Rate 76 75 81 Respiratory Rate 15 14 20 Blood Pressure 112/55 L Blood Pressure Mean 83 Pulse Oximetry 97 Oxygen Delivery Method Room Air Sepsis Recent Fever Within 48 Hours Sepsis New/Unexplained Change in Mental Status Sepsis Action Taken by Nursing 03/07/19 16:00 03/07/19 16:01 03/07/19 16:30 Temperature Temperature Source Pulse Rate 83 82 75 Respiratory Rate 16 20 16 Blood Pressure 122/69 117/66 Blood Pressure Mean 77 86 Pulse Oximetry 98 98 Oxygen Delivery Method Room Air Room Air Sepsis Recent Fever Within 48 Hours Sepsis New/Unexplained Change in Mental Status Sepsis Action Taken by Nursing 03/07/19 16:31 Temperature Temperature Source Pulse Rate 79 Respiratory Rate 14 Blood Pressure Blood Pressure Mean Pulse Oximetry Oxygen Delivery Method Sepsis Recent Fever Within 48 Hours Sepsis New/Unexplained Change in Mental Status Sepsis Action Taken by Nursing GENERAL: She is oriented to person, place, and time. She appears well-developed and well-nourished. She does not appear distressed. HENT: Exam performed. - Head: Normocephalic and atraumatic. - Right Ear: External ear normal. No mastoid tenderness. - Left Ear: External ear normal. No mastoid tenderness. - Mouth/Throat: The oropharynx is clear and moist. No trismus in the jaw. No dental abscesses or uvula swelling. No oropharyngeal exudate or tonsillar abscesses. EYES: Conjunctivae and EOM are normal. Pupils are equal, round, and reactive to light. Right eye exhibits no discharge. Left eye exhibits no discharge. No scleral icterus. NECK: Normal range of motion. Neck supple. No JVD present. No spinous process tenderness present. No carotid bruit present. No rigidity. No tracheal deviation and normal range of motion present. No Brudzinski's sign and no Kernig's sign noted. CV: Normal rate, regular rhythm, normal heart sounds and intact distal pulses. There is no peripheral edema. Palpable radial pulses bue. PULM/CHEST: Effort normal and breath sounds normal. No respiratory distress. No stridor. She has no wheezes. She has no rales. Chest Wall: She exhibits no tenderness. ABD: The abdomen is soft. Bowel sounds are normal. She has no distension. No mass is present. There is pain on palpation of the epigastric area and right upper quadrant. There is no rebound, no guarding, no Dior's sign and no tenderness at McBurney's point. Rovsig negative MUSC/SKEL: Normal range of motion. There is no peripheral edema, tenderness or deformity. LYMPH: No cervical adenopathy. NEURO: She is alert and oriented to person, place, and time. She has normal strength. No cranial nerve deficit or sensory deficit. Coordination and gait normal. GCS eye subscore is 4. GCS verbal subscore is 5. GCS motor subscore is 6. cerbellar tests wnl. SKIN: Skin is warm and dry. She is not diaphoretic. PSYCH: She has a normal mood and affect. Her behavior is normal. Judgment and thought content normal. Course Course 1358: The patient was evaluated in room C1B. A complete history and physical exam was performed. 1546: Vital signs stable. Labs show a white count of 12.13 and an AST of 53. Her ultrasound findings are equivocal for a cholecystitis. Her CTA shows no PE. 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 The patient will be admitted for GI and surgical evaluations, as well as a hiatal scan per recommendations of radiology. I discussed the patient's case with Dr. Gr [facility]. The patient will be given Flagyl and Rocpehin in the ED. Administered Medications Ioversol (Optiray 320 100ml) 77 ml IV ONCE PRN PRN Reason: Interaction Checking Stop: 03/11/19 15:01 Last Admin: 03/07/19 15:03 Dose: 77 ml Documented by: [id number] Discontinued Medications Sodium Chloride (Nss 1000ml) 1,000 mls @ 999 mls/hr IV .Q1H1M ONE Stop: 03/07/19 15:02 Last Infusion: 03/07/19 15:20 Dose: 0 mls/hr Documented by: [id number] Admin: 03/07/19 14:19 Dose: 999 mls/hr Documented by: [id number] Ceftriaxone Sodium (Rocephin) 1,000 mg in 50 mls @ 100 mls/hr IV NOW STA Stop: 03/07/19 16:12 Last Infusion: 03/07/19 16:19 Dose: 0 mls/hr Documented by: [id number] Admin: 03/07/19 15:49 Dose: 100 mls/hr Documented by: [id number] Metronidazole (Flagyl) 500 mg in 100 mls @ 100 mls/hr IV NOW STA Stop: 03/07/19 16:42 Last Infusion: 03/07/19 18:22 Dose: 0 mls/hr Documented by: [id number] Admin: 03/07/19 17:07 Dose: 100 mls/hr Documented by: [id number] Ketorolac Tromethamine (Toradol) 15 mg IV NOW STA Stop: 03/07/19 14:03 Last Admin: 03/07/19 14:20 Dose: 15 mg Documented by: [id number] Ondansetron HCl (Zofran) 4 mg IV NOW STA Stop: 03/07/19 14:03 Last Admin: 03/07/19 14:20 Dose: 4 mg Documented by: [id number] Medical Decision Making Medical Records Attestation: I reviewed the patient's medical records. Home Medications Current Medication List: was personally reviewed by me Laboratory Data Attestation: I reviewed the patient's lab results. Result diagrams: 03/07/19 13:54 03/07/19 13:54 Lab Results 03/07/19 03/07/19 03/07/19 Range/Units 13:54 13:54 13:54 WBC 12.13 H (4.8-10.8) K/uL RBC 4.54 (4.2-5.4) M/uL Hgb 13.7 (12.0-16.0) g/dL Hct 40.9 (37-47) % MCV 90.1 (80-100) fL MCH 30.2 (25-34) pg MCHC 33.5 (32-36) g/dL RDW Std Deviation 42.0 (36.4-46.3) fL RDW Coeff of Red 12.7 (11.5-14.5) % Plt Count 294 (130-400) K/uL MPV 9.9 (7.4-10.4) fL Immature Gran % (Auto) 0.2 % Neut % (Auto) 84.4 % Lymph % (Auto) 10.8 % [place] % (Auto) 3.2 % Eos % (Auto) 1.2 % Baso % (Auto) 0.2 % Immature Gran # (Auto) 0.03 H (0.00-0.02) K/uL Neut # (Auto) 10.24 H (1.4-6.5) K/uL Lymph # (Auto) 1.31 (1.2-3.4) K/uL [place] # (Auto) 0.39 (0.11-0.59) K/uL Eos # (Auto) 0.14 (0-0.5) K/uL Baso # (Auto) 0.02 (0-0.2) K/uL PT 9.8 (9.0-12.0) Seconds INR 1.0 (0.9-1.1) APTT 27.2 (21.0-31.0) Seconds PTT Ratio 1.0 D-Dimer 910 H* (0-500) ug/L FEU Sodium 138 (136-145) mmol/L Potassium 3.5 (3.5-5.1) mmol/L Chloride 106 (98-107) mmol/L Carbon Dioxide 26 (21-32) mmol/L Anion Gap 7.0 (3-11) BUN 13 (7-18) mg/dl Creatinine 0.97 (0.6-1.2) mg/dl Est Cr Clr Drug Dosing 62.1 ml/min Est GFR ( Amer) 76.7 Est GFR (Non-Af Amer) 66.2 BUN/Creatinine Ratio 13.4 (10-20) Glucose 109 H (70-99) mg/dl Calcium 9.2 (8.5-10.1) mg/dl Total Bilirubin 0.3 (0.2-1) mg/dl Direct Bilirubin < 0.1 (0-0.2) mg/dl AST 53 H (15-37) U/L ALT 41 (12-78) U/L Alkaline Phosphatase 101 (45-117) U/L Troponin I < 0.015 (0-0.045) ng/ml Total Protein 8.1 (6.4-8.2) gm/dl Albumin 3.5 (3.4-5.0) gm/dl Lipase 122 (73-393) U/L 03/07/19 Range/Units 13:54 WBC (4.8-10.8) K/uL RBC (4.2-5.4) M/uL Hgb (12.0-16.0) g/dL Hct (37-47) % MCV (80-100) fL MCH (25-34) pg MCHC (32-36) g/dL RDW Std Deviation (36.4-46.3) fL RDW Coeff of Red (11.5-14.5) % Plt Count (130-400) K/uL MPV (7.4-10.4) fL Immature Gran % (Auto) % Neut % (Auto) % Lymph % (Auto) % [place] % (Auto) % Eos % (Auto) % Baso % (Auto) % Immature Gran # (Auto) (0.00-0.02) K/uL Neut # (Auto) (1.4-6.5) K/uL Lymph # (Auto) (1.2-3.4) K/uL [place] # (Auto) (0.11-0.59) K/uL Eos # (Auto) (0-0.5) K/uL Baso # (Auto) (0-0.2) K/uL PT (9.0-12.0) Seconds INR (0.9-1.1) APTT (21.0-31.0) Seconds PTT Ratio D-Dimer Cancelled (0-500) ug/L FEU Sodium (136-145) mmol/L Potassium (3.5-5.1) mmol/L Chloride (98-107) mmol/L Carbon Dioxide (21-32) mmol/L Anion Gap (3-11) BUN (7-18) mg/dl Creatinine (0.6-1.2) mg/dl Est Cr Clr Drug Dosing ml/min Est GFR ( Amer) Est GFR (Non-Af Amer) BUN/Creatinine Ratio (10-20) Glucose (70-99) mg/dl Calcium (8.5-10.1) mg/dl Total Bilirubin (0.2-1) mg/dl Direct Bilirubin (0-0.2) mg/dl AST (15-37) U/L ALT (12-78) U/L Alkaline Phosphatase (45-117) U/L Troponin I (0-0.045) ng/ml Total Protein (6.4-8.2) gm/dl Albumin (3.4-5.0) gm/dl Lipase (73-393) U/L Imaging Data Radiologist's Impression: Radiology results as stated below per my review and the radiologist's interpretation: XR abdomen 2V w PA chest CLINICAL HISTORY: 53 years-old Female presenting with epigastric pain. TECHNIQUE: PA view of the chest and supine and upright views of the abdomen were obtained. COMPARISON: None. FINDINGS: Cardiomediastinal silhouette normal. Lungs are hyperinflated. No focal opacity. No large effusion or pneumothorax. Mild gaseous distention of the stomach. Nonobstructive bowel gas pattern. No gross pneumoperitoneum. Allowing for bowel gas and stool, no calcifications to suggest nephrolithiasis. Calcifications in the pelvis could relate to degenerated fibroids. Dextroscoliotic curvature of the thoracic spine and compensatory levoscoliotic curvature of the lumbar spine. IMPRESSION: 1. No acute cardiopulmonary disease. 2. Mild gaseous distention of the stomach, nonspecific. No bowel obstruction. 3. S-shaped scoliotic curvature of the spine. ACT 112: Negative or not required by law. Electronically signed by: Sarthak Adorno M.D. 03/07/2019 2:45 PM ULTRASOUND RIGHT UPPER QUADRANT ABDOMEN CLINICAL HISTORY: Right upper quadrant abdominal pain. COMPARISON STUDY: Abdominal CT dated 07/13/2011. TECHNIQUE: Real-time, grayscale, and color flow sonography of the right upper quadrant of the abdomen was performed. Images are reviewed in the transverse and longitudinal planes. FINDINGS: Liver: The liver is normal in size and echotexture. There is no intrahepatic biliary ductal dilatation. The main portal vein is patent. Gallbladder: There are numerous small shadowing gallstones. The gallbladder is distended. There is no gallbladder wall thickening or pericholecystic fluid. A sonographic Dior's sign is reportedly absent. The common bile duct measures up to 0.4 cm in diameter. Pancreas: Visualized portions of the pancreatic head and body are normal in appearance. The splenic vein is patent. Right kidney: Survey images of the right kidney demonstrate normal size and echotexture. There is no hydronephrosis. Ascites: None. IMPRESSION: 1. Cholelithiasis with a distended gallbladder. A sonographic Dior's sign is reportedly absent and the gallbladder wall is not thickened. Findings are equivocal for acute cholecystitis which is not entirely excluded. If clinically warranted a nuclear hepatobiliary scan could be considered for further ass essment. 2. There is no intra or extrahepatic iliac artery ductal dilatation. ACT 112: Negative or not required by law. Electronically signed by: Quique Cowan M.D. 03/07/2019 3:[address] angio chest PE protocol CLINICAL HISTORY: 53 years-old Female presenting with left-sided chest pain, clinical concern for pulmonary embolus. TECHNIQUE: Multidetector CT angiography of the chest was performed after administration of intravenous contrast. 3-D volumetric and/or maximum intensity projection (MIP) images were subsequently reconstructed for review. IV contrast: 77 mL of Optiray 320. One or more dose lowering techniques were used consistent with the principles of ALARA (as low as reasonably achievable), including automatic exposure control, mA or kV adjustment to individual patient size, and/or use of iterative reconstruction. COMPARISON: None. CT DOSE (mGy.cm): The estimated cumulative dose is 262.17 mGy.cm. FINDINGS: Animal Killer topogram: Unremarkable. Pulmonary vasculature: The study is adequate for assessment of the pulmonary vascular tree. No filling defect within the pulmonary arteries to suggest embolus. Main pulmonary artery is not enlarged. No flattening of the interventricular septum. No intracardiac filling defect. No reflux of contrast into the hepatic veins. Remaining chest: Soft tissues: Normal thyroid and thoracic inlet. No axillary, supraclavicular, mediastinal, or hilar lymphadenopathy. Normal aorta. Normal heart size. No pericardial or pleural effusion. Upper abdomen normal. Lungs and airways: No pneumothorax. Central airways patent. Pulmonary arteries are not significantly enlarged relative to adjacent bronchi. No interlobular septal thickening. Minimal dependent changes likely atelectasis. 3 mm solid no dule in the anterior segment of the right upper lobe (series 4 image 145). Calcified granuloma in the right lower lobe. Solid 4 mm peripheral right lower lobe nodule (series 4 image 128). Solid triangular peribronchovascular 4 mm nodule in the superior lingula (series 4 image 150). Musculoskeletal: Normal osseous structures. IMPRESSION: 1. No evidence of pulmonary embolus. No acute intrathoracic pathology. 2. Multiple solid pulmonary nodules measuring up to 4 mm. Follow-up per Fleischner Society 2017 recommendations below. Summary of Fleischner Society 2017 Recommendations (H Louis et al. Guidelines for management of incidental pulmonary nodules detected on CT images: From the Fleischner Society 2017. Radiology 2017; 284: 228-243.) SOLID NODULES Single nodule; size < 6 mm * Low risk patients: No routine follow-up * High risk patients: Optional CT at 12 months Single nodule; size 6-8 mm * Low risk patients: CT at 6-12 months, then consider CT at 18-24 months * High risk patients: CT at 6-12 months, then at 18-24 months Single nodule; size > 8 mm * Either low or high risk patients: Considered CT at 3 months, PET/CT, or tissue sampling Multiple nodules; size < 6 mm * Low risk patients: No routine follow up * High risk patients: Optional CT at 12 months Multiple nodules; size 6-8 mm * Low risk patients: CT at 3-6 months, then consider CT at 18-24 months * High risk patients: CT at 3-6 months, then at 18-24 months Multiple nodules; size > 8 mm * Low risk patients: CT at 3-6 months, then consider at 18-24 months * High risk patients: CT at 3-6 months, then at 18-24 months SUBSOLID NODULES Single ground-glass nodule * Nodule size < 6 mm: No routine follow-up * Nodule size > or = 6 mm: CT at 6-12 months to confirm persistence, then CT every 2 years until 5 years Single part-solid nodule * Nodule size < 6 mm: No routine follow-up * Nodules size > or = 6 mm: CT at 3-6 months to confirm persistence. If unchanged and solid component remains < 6 mm, annual CT should be performed for 5 years Multiple nodules * Nodule size < 6 mm: CT at 3-6 months. If stable, consider CT at 2 and 4 years. * Nodules size > or = 6 mm: CT at 3-6 months. Subsequent management based on the most suspicious nodule(s) NOTE: 1) These guidelines apply to incidental nodules. These guidelines do NOT apply to patients younger than 35 years, immunocompromised patients, or patients with cancer. 2) Risk categories: * Low risk patients: Minimal or absent history of smoking and/or other known risk factors * High risk patients: History of smoking, exposure to other carcinogens, emphysema, fibrosis, upper lobe location, family history of lung cancer, etc. 3) If a nodule up to 8 mm is partly solid or is ground glass, further follow-up is required after 24 months to exclude possible slow growing adenocarcinoma. ACT 112: Negative or not required by law. Electronically signed by: Sarthak Adorno M.D. 03/07/2019 3:11 PM ECG Data Attestation: I personally reviewed and interpreted this ECG as follows: Indication: + chest pain Rate (beats per minute): 56 Rhythm: + sinus rhythm ECG Intervals/blocks: + Normal QRS, + Normal ME and + Normal QT-c ECG ST segments: no ST depression and no ST elevation Blood Pressure Blood Pressure Findings: Elevated blood pressure Blood Pressure Disposition: elevated BP felt to be situational MDM Narrative Vital signs stable. Labs show a white count of 12.13 and an AST of 53. Her ultrasound findings are equivocal for a cholecystitis. Her CTA shows no PE. 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 The patient will be admitted for GI and surgical evaluations, as well as a hiatal scan per recommendations of radiology. I discussed the patient's case with Dr. Bautista- [facility]. The patient will be given Flagyl and Rocpehin in the ED. Impression & Plan Acute cholecystitis Discharge Plan Visit Data *Final* Discharge Date/Time: 03/07/19 17:37 Chief Complaint: Chest Pain Stated Complaint: VOMITING ED Provider: Aime Saul Discharge Problem: Acute cholecystitis Patient Disposition: Admitted As Inpatient Discharge Instructions Interventions: ED Discharge Assessment Last Done: 03/07/19 17:37 The scribe's documentation has been prepared under my direction and personally reviewed by me in its entirety. I confirm that the note above accurately reflects all work, treatment, procedures, and medical decision making performed by me.
[2019-03-07 19:57] LABS: Pregnancy Test, Urine Negative (Negative)
[2019-03-07] MEDS: FAMOTIDINE 20 MG in SYRINGE 3 ML IV SCH (20:08)
[2019-03-07] MEDS: cefUROXime 1,000 MG in DEXTROSE 5% 50 ML IV SCH (21:40)
[2019-03-07] MEDS: metroNIDAZOLE 500 MG/100 ML BAG IV SCH (23:36)
[2019-03-08] MEDS: cefUROXime 1,000 MG in DEXTROSE 5% 50 ML IV SCH (06:08)
[2019-03-08 06:57] LABS: Basophils # (auto) 0.03 K/uL (0-0.2); Basophils % (auto) 0.4 %; Eosinophils # (auto) 0.29 K/uL (0-0.5); Eosinophils % (auto) 4.1 %; Hematocrit (blood only) 36.2 % (37-47); Hemoglobin 12.2 g/dL (12.0-16.0); Immature Granulocytes # (auto) 0.01 K/uL (0.00-0.02); Immature Granulocytes % (auto) 0.1 %; Lymphocytes # (auto) 1.55 K/uL (1.2-3.4); Lymphocytes % (auto) 21.9 %; Mean Corpuscular Hemoglobin 30.1 pg (25-34); Mean Corpuscular Hgb Conc 33.7 g/dL (32-36); Mean Corpuscular Volume 89.4 fL (80-100); Mean Platelet Volume 10.1 fL (7.4-10.4); Monocytes # (auto) 0.59 K/uL (0.11-0.59); Monocytes % (auto) 8.3 %; Neutrophils # (auto) 4.61 K/uL (1.4-6.5); Neutrophils % (auto) 65.2 %; Platelet Count 247 K/uL (130-400); RDW Coefficient of Variation 12.8 % (11.5-14.5); RDW Standard Deviation 41.7 fL (36.4-46.3); Red Blood Count 4.05 M/uL (4.2-5.4); White Blood Count 7.08 K/uL (4.8-10.8)
[2019-03-08 07:38] LABS: Albumin Level 2.7 gm/dl (3.4-5.0); BUN Creatinine Ratio 14.9 (10-20); Calcium 8.2 mg/dl (8.5-10.1); Creatinine Clr Calc Pharmacy 77.2 ml/min; Est GFR (African American) 99.9; Est GFR (Non-African American) 86.2; Potassium 3.4 mmol/L (3.5-5.1)
[2019-03-08 07:43] LABS: Albumin Globulin Ratio 0.7 (0.9-2); Bilirubin,Total 0.5 mg/dl (0.2-1); Globulin 3.9 gm/dl (2.5-4.0); Total Protein 6.6 gm/dl (6.4-8.2)
[2019-03-08] MEDS ORDERED: MoRPHine SULFATE 2 MG/ML CARP IV PRN (09:20)
[2019-03-08] MEDS ORDERED: MoRPHine SULFATE 2 MG/ML CARP ONE (09:58)
[2019-03-08] MEDS: metroNIDAZOLE 500 MG/100 ML BAG IV SCH ×3 (10:52→21:37)
--- NOTE | 2019-03-08 10:57 | Nuclear Medicine Report ---
NM hepatobiliary CLINICAL HISTORY: 53 years-old Female presenting with epigastric pain, gallstones, nausea and vomitin g, positive Dior's sign, eval for acute cholecystitis. TECHNIQUE: Immediately following the intravenous administration of 5.4 mCi Tc-99m Choletec, dynamic a nterior abdominal imaging was performed. 2 mg of IV morphine was administered at 60 minutes due to no ndistention of the gallbladder with a patent common duct. COMPARISON: None. FINDINGS: Uniform hepatic tracer accumulation is shown. Prompt intrahepatic biliary excretion is seen. Radiotra cer noted in the common bile duct without definitive radiotracer in the gallbladder. The gallbladder was not visualized after 60 minutes. Morphine was then administered, however, the gallbladder was sti ll not visualized. Expected radiotracer activity within small bowel indicates an unobstructed common duct. IMPRESSION: 1. Nonvisualization of the gallbladder despite morphine administration. Findings highly concerning f or acute cholecystitis. Surgical consultation is necessary. 2. Unobstructed common duct. The report will be called/faxed according to standard departmental protocol. ACT 112: Negative or not required by law. Electronically signed by: Sarthak Adorno M.D. 03/08/2019 10:55 AM
[2019-03-08] MEDS: LORATADINE 10 MG TAB PO SCH (10:59)
[2019-03-08] MEDS: ESCITALOPRAM OXALATE 20 MG TAB PO SCH (10:59)
[2019-03-08] MEDS: CHOLECALCIFEROL 1,000 UNITS TAB PO SCH (10:59)
[2019-03-08] MEDS: FAMOTIDINE 20 MG in SYRINGE 3 ML IV SCH ×2 (11:04→21:29)
[2019-03-08] MEDS ORDERED: GLYCOPYRROLATE 0.2 MG/ML VIAL ONE (11:24)
[2019-03-08] MEDS ORDERED: LIDOCAINE HCL 2% 2 ML VIAL/AMP(20MG/ML) INFIL ONE (11:24)
[2019-03-08] MEDS ORDERED: fentaNYL citrate 100 MCG/2 ML VIAL ONE ×4 (11:24→14:18)
[2019-03-08] MEDS ORDERED: DEXAMETHASONE SOD INJ 4 MG/ML VIAL ONE (11:24)
[2019-03-08] MEDS ORDERED: NEOSTIGMINE METHYLSULFATE 5 MG/5 ML SYR ONE (11:24)
[2019-03-08] MEDS ORDERED: ROCURONIUM BROMIDE 10 MG/ML 5 ML VIAL ONE (11:24)
[2019-03-08] MEDS ORDERED: ONDANSETRON INJ 2 MG/ML 2 ML VIAL ONE (11:24)
[2019-03-08] MEDS ORDERED: PROPOFOL IV EMULSION 10 MG/ML 20 ML VIAL IV ONE (11:24)
[2019-03-08] MEDS ORDERED: MIDAZOLAM HCL 1 MG/ML 2ML VIAL ONE (11:24)
--- NOTE | 2019-03-08 11:39 | Surgery Progress Note ---
Date of Service March 08, 2019 Assessment & Plan (1) Acute cholecystitis: will plan lap kaila today risks explained Subjective HIDA scan shows acute cholecystitis expalined to patient Review of Systems Gastrointestinal: + abdominal pain and + nausea Physical Exam Gastrointestinal (Abdomen): Inspection/Auscultation: abdomen normal to inspection and normal bowel sounds Percussion/Palpation: + abdomen tender and abdomen soft Results & Data Vital Signs (Past 12 Hours) Vital Signs Temp Pulse Resp BP Pulse Ox 03/08/19 07:40 36.9 C 69 14 118/71 98
[2019-03-08] MEDS ORDERED: POTASSIUM CHLORIDE / WTR 10 MEQ/100 ML PLCT IV ONE (12:11)
[2019-03-08] MEDS ORDERED: BUPIVACAINE/EPINEPHRINE 0.5% MPF 1:200,000 10 ML VIAL ONE (12:22)
--- NOTE | 2019-03-08 12:39 | Anesthesiology Consultation ---
Date of Service March 08, 2019 Assessment & Plan Chart Review Chart Review: Acceptable Risk for Surgery Consults Requested none History Surgery Operation Date: 03/08/19 13:00 Proposed Procedures p Laparoscopic Cholecystectomy - Kenyon Fleming MD Height/Weight Height: 5 ft 6 in Weight: 64.7 kg Allergies Allergy/AdvReac Type Severity Reaction Status Date / Time No Known Drug Allergies Allergy Verified 03/07/19 15:14 Medications Home Medications Medication Instructions Recorded Confirmed Last Taken conj estrogen-medroxyprogesterone 1 tab PO DAILY #28 tab 11/15/18 03/07/19 03/06/19 0.625 mg(14)/0.625 mg-5mg(14) tablet escitalopram oxalate 20 mg tablet 20 mg PO DAILY #90 tab 11/20/18 03/07/19 03/06/19 loratadine 10 mg tablet 10 mg PO DAILY 01/08/19 03/07/19 03/06/19 zolpidem 6.25 mg tablet,extended 6.25 mg PO HS PRN #10 tab 01/20/19 03/07/19 Unknown release,multiphase cholecalciferol (vitamin D3) 5,000 5,000 units PO DAILY #30 cap 02/12/19 03/07/19 03/06/19 unit capsule Active Medications Generic Name Dose Route Start Last Admin Trade Name Tayo PRN Reason Stop Dose Admin Escitalopram Oxalate 20 mg 03/08/19 09:00 03/08/19 10:59 Lexapro Tab PO 04/07/19 08:59 Not Given DAILY BERNARDO Famotidine 20 mg/ Syringe 5 mls @ 2.5 mls/min 03/07/19 21:00 03/08/19 11:04 IV 04/06/19 20:59 2.5 mls/min BID BERNARDO Administration Metronidazole 500 mg in 100 mls @ 100 mls/hr 03/08/19 00:00 03/08/19 11:55 Flagyl IV 03/18/19 00:00 Infused Q8H BERNARDO Infusion Ioversol 77 ml 03/07/19 15:02 03/07/19 15:03 Optiray 320 100ml IV 03/11/19 15:01 77 ml ONCE PRN Administration Interaction Checking Loratadine 10 mg 03/08/19 09:00 03/08/19 10:59 Claritin PO 04/07/19 08:59 Not Given DAILY BERNARDO Miscellaneous 1 ea 03/07/19 18:30 03/08/19 09:46 Order Awaiting Action N/A 04/06/19 18:29 Not Given QS BERNARDO Vitamin D 5,000 units 03/08/19 09:00 03/08/19 10:59 Vitamin D3 PO 04/07/19 08:59 Not Given DAILY BERNARDO NPO Date Last Intake of Fluids: 03/08/19 Time Last Intake of Fluids: 23:01 Date Last Intake of Solids: 03/08/19 Time Last Intake of Solids: 23:01 Past Medical History Medical History History of breast pain Tuboplasty or vasoplasty after previous sterilization Past Family History Family History Sister Breast cancer Father Malignant neoplasm of skin Past Surgical History Surgical History Hx of breast surgery S/P tubal ligation Social History Smoking Status: Never smoker Do You Dip or Chew Tobacco: No Hx Alcohol Use: Yes Alcohol type: beer alcohol intake frequency: other Alcohol Intake Frequency Comment: socially Hx Substance Use: No substance use type: does not use Physical Exam Vital Signs Last Vital Signs Temp 36.9 C 03/08/19 07:40 Pulse 69 03/08/19 07:40 Resp 14 03/08/19 07:40 BP 118/71 03/08/19 07:40 Pulse Ox 98 03/08/19 07:40 Testing Laboratory Results 03/08/19 06:14 03/08/19 06:14 PT 9.8 Seconds (9.0-12.0) 03/07/19 13:54 INR 1.0 (0.9-1.1) 03/07/19 13:54 APTT 27.2 Seconds (21.0-31.0) 03/07/19 13:54 Urine Color Yellow 03/07/19 18:15 Urine Appearance Clear (Clear) 03/07/19 18:15 Urine pH 5.0 (4.5-7.5) 03/07/19 18:15 Ur Specific [place] > 1.045 (1.000-1.030) H 03/07/19 18:15 Urine Protein Negative (Negative) 03/07/19 18:15 Urine Glucose (UA) Negative (Negative) 03/07/19 18:15 Urine Ketones 1+ (Negative) H 03/07/19 18:15 Urine Nitrite Negative (Negative) 03/07/19 18:15 Ur Leukocyte Esterase Negative (Negative) 03/07/19 18:15 Urine Test Negative (Negative) 03/07/19 18:15 03/07/19 18:15 Urine Test Negative
[2019-03-08] MEDS ORDERED: PROMETHAZINE HCL 12.5 MG in SODIUM CHLORIDE 0.9% 50 ML IV PRN (12:40)
[2019-03-08] MEDS ORDERED: ATROPINE SULFATE 0.1 MG/ML 10ML SYR IV PRN (12:40)
[2019-03-08] MEDS ORDERED: HYDROmorphone INJ 2 MG/ML SYR/VIAL IV PRN (12:40)
[2019-03-08] MEDS ORDERED: ONDANSETRON INJ 2 MG/ML 2 ML VIAL IV PRN (12:40)
[2019-03-08] MEDS ORDERED: ePHEDrine sulfate 50 MG/ML AMP IV PRN (12:40)
[2019-03-08] MEDS ORDERED: CEFAZOLIN 250 MG/ML 1 GM VIAL ONE (13:07)
[2019-03-08] MEDS ORDERED: SODIUM CHLORIDE 0.9% INJ 10 ML VIAL ONE (13:07)
--- NOTE | 2019-03-08 13:59 | Post Operative Brief Note ---
Immediate Post Op Note v1 Date of Surgery March 08, 2019 Pre & Post Diagnosis Operation Date: 03/08/19 13:00 Pre-Op Diagnosis: ABDOMINAL PAIN,CHOLELITHIASIS Post-Op Diagnosis: ABDOMINAL PAIN,CHOLELITHIASIS I identified the patient and participated in the time-out.: Yes Procedure Operation Date: 03/08/19 13:00 Actual Procedures p Laparoscopic Cholecystectomy - Kenyon Fleming MD Surgeon Kenyon Fleming MD Media Planner / Buyer none Estimated Blood Loss 20 Findings Consistent with Post-Op Diagnosis
[2019-03-08] MEDS ORDERED: DEXTROSE 5% IV SCH (14:00)
[2019-03-08] MEDS ORDERED: CEFUROXIME IV SCH (14:00)
[2019-03-08] MEDS: fentaNYL citrate 100 MCG/2 ML VIAL IV PRN ×4 (14:10→14:25)
[2019-03-08] MEDS ORDERED: ACETAMINOPHEN 325 MG TAB PO PRN (14:15)
[2019-03-08] MEDS ORDERED: IBUPROFEN 200 MG TAB PO PRN (14:15)
[2019-03-08] MEDS ORDERED: MoRPHine SULFATE 4 MG/ML 1 ML CARP\\VIAL IV PRN (14:15)
--- NOTE | 2019-03-08 14:19 | Operative Report ---
DATE OF OPERATION: 03/08/2019 PREOPERATIVE DIAGNOSIS: Acute cholecystitis. POSTOPERATIVE DIAGNOSIS: Acute cholecystitis. PROCEDURE PERFORMED: Laparoscopic cholecystectomy. SURGEON: Kenyon Fleming MD PROFESSIONAL ATHLETE: None. ESTIMATED BLOOD LOSS: 20 mL. DRAINS: None. COMPLICATIONS: None. INDICATION FOR PROCEDURE: This is a 53-year-old female who came to the hospital complaining of abdominal pain, had a workup which included an ultrasound which showed stones and a question of acute cholecystitis. She was begun on antibiotics, was sent for HIDA scan, which showed her to have acute gallbladder. We will plan on doing a laparoscopic cholecystectomy. The risks of an open procedure, common bile duct injury, retained common bile duct stone, and postop bile leak were all discussed with her. DESCRIPTION OF PROCEDURE: The patient was taken to the OR and underwent excellent general endotracheal anesthesia. Abdomen was prepped and draped in normal sterile fashion. Transverse supraumbilical incision was made. Dissection was taken down to identify anterior fascia. Two Vicryls were placed inside the midline. Midline was incised sharply. A Rober trocar was then used to enter after the peritoneal cavity was entered with a Nuha clamp. Good pneumoperitoneum was achieved to 15 mmHg pressure. The patient was placed in head up and rolled to the left. A subxiphoid 11 port and two 5 lateral ports were placed in normal fashion. A good diagnostic lap was performed. She had an obvious acute gallbladder with edema in the bah. The fundus was grasped and retracted superiorly. The neck was grasped and retracted laterally. The peritoneal attachments were taken down. Cystic duct and cystic artery were identified and skeletonized. Medial and lateral window was created in the gallbladder and gallbladder fossa showing these structures going straight to the gallbladder. Once this critical view was seen, 2 clips were placed proximally in the cystic artery, 1 distally on the cystic artery was transected. Three clips were then placed proximally in the cystic duct, 1 distally on the cystic duct and cystic duct was transected. Electrocautery hook was then used in the gallbladder and gallbladder fossa. There was a small hole made in the gallbladder with a little bit of bile leak, but no stones escaped. The gallbladder was brought out with an Endobag and sent for pathologic evaluation. The gallbladder fossa had some raw areas which were bleeding. These were cauterized and then Surgicel was used to reinforce this. There was no bleeding at the end of the case. The abdomen was suctioned out to clear. Ports were then removed. Pneumoperitoneum was decompressed. A 0 Vicryl was used to close the fascial defect in the supraumbilical incision. Interrupted Vicryl was used to close the subQ and the skin. A 0.5% Marcaine with epinephrine local was used to create a local field block. Steri-Strips and benzoin were used for skin incision. Sterile dressings were applied. The patient tolerated the procedure well with no complications, sent to post-recovery for a period of observation and be sent to floor for her care. I attest to the content of the Intraoperative Record and any orders documented therein. Any exception s are noted below.
[2019-03-08] MEDS ORDERED: KETOROLAC 30 MG/ML VIAL ONE (14:29)
[2019-03-08] MEDS ORDERED: KETOROLAC 30 MG/ML VIAL IV ONE (14:31)
[2019-03-08] MEDS ORDERED: MoRPHine SULFATE 10 MG/ML CARP/VIAL IV PRN (14:37)
[2019-03-08] MEDS ORDERED: HYDROmorphone INJ 1 MG/ML SYRINGE ONE (14:48)
--- NOTE | 2019-03-08 15:52 | Anesthesiology Progress Note ---
Date of Service March 08, 2019 Anesthesia Post Procedure Vital Signs Vital Signs: Temp Pulse Pulse Pulse Resp BP BP 03/08/19 15:15 79 17 137/69 03/08/19 15:05 37.1 C 78 18 134/74 03/08/19 14:55 76 19 144/70 H 03/08/19 14:45 75 18 147/85 H 03/08/19 14:35 78 16 140/77 03/08/19 14:25 81 17 158/73 H 03/08/19 14:15 71 18 154/74 H 03/08/19 14:06 36.3 C L 70 16 131/72 03/08/19 07:40 36.9 C 69 14 118/71 03/07/19 23:12 37.3 C 74 17 118/61 03/07/19 18:06 37.3 C 74 18 138/80 03/07/19 17:31 70 17 03/07/19 17:30 73 14 119/62 03/07/19 17:01 77 16 03/07/19 17:00 76 20 124/79 03/07/19 16:31 79 14 03/07/19 16:30 75 16 117/66 03/07/19 16:01 82 20 03/07/19 16:00 83 16 122/69 Pulse Ox 03/08/19 15:15 93 03/08/19 15:05 93 03/08/19 14:55 93 03/08/19 14:45 96 03/08/19 14:35 96 03/08/19 14:25 100 03/08/19 14:15 100 03/08/19 14:06 99 03/08/19 07:40 98 03/07/19 23:12 97 03/07/19 18:06 98 03/07/19 17:31 03/07/19 17:30 98 03/07/19 17:01 03/07/19 17:00 99 03/07/19 16:31 03/07/19 16:30 98 03/07/19 16:01 03/07/19 16:00 98 Pain Intensity Upper Medial Abdomen: Pain Intensity: 8 Right Abdomen: Pain Intensity: 4 Transfer of Care Handoff Completed per policy Notes Mental Status: alert / awake / arousable and participated in evaluation Patient Amnestic to Procedure: Yes Nausea / Vomiting: adequately controlled Pain: adequately controlled Airway Patency, RR, SpO2: stable & adequate BP & HR: stable & adequate Hydration State: stable & adequate Anesthetic Complications: no major complications apparent
[2019-03-08] MEDS: ONDANSETRON INJ 2 MG/ML 2 ML VIAL IV PRN ×2 (16:17→23:27)
[2019-03-08] MEDS: PROMETHAZINE HCL 12.5 MG in SODIUM CHLORIDE 0.9% 50 ML IV PRN (18:14)
--- NOTE | 2019-03-08 19:58 | Hospitalist Progress Note ---
Date of Service March 08, 2019 Assessment & Plan (1) Acute cholecystitis: s/p lap kaila today by Dr Fleming. diet advancement per surgery. cont IVF, pain meds, anti-emetics. BMP am. defer abx to gen surg. (2) Reflux esophagitis: IV H2 jyoti (3) Pulmonary nodule seen on imaging study: Multiple nodules seen on CTA chest - largest 4mm. No prior h/o tobacco use thus low risk. According to guidelines may not need f/u CT scan. Will inquire 1 more time about any prior tobacco use. (4) Depression: cont lexapro possible d/c home tomorrow Subjective saw pt post-lap kaila today on the med/surg floor. had significant pain in PACU - referred pain to right upper chest/shoulder. by the time she had gotten back to the floor it was improved. mild nausea at time of my visit. no dyspnea. no chest pain. Review of Systems Constitutional: no fever Respiratory: no cough Cardiovascular: as per Subjective / HPI; no orthopnea Gastrointestinal: + abdominal pain and + nausea; no vomiting Physical Exam Constitutional: well developed and well nourished; no acute distress and no altered mental status ENMT: external ear and nose normal, oropharynx normal Respiratory: normal respiratory effort, lungs clear to auscultation Cardiovascular: Rate/Rhythm: regular rate and regular rhythm Heart Sounds: normal S1 and normal S2; no murmur Vessels: posterior tibial pulses present and dorsalis pedis pulses present; no JVD Extremities: no edema Gastrointestinal (Abdomen): Inspection/Auscultation: + abdomen distended and normal bowel sounds Percussion/Palpation: + abdomen tender (incisions); no guarding and no hepatosplenomegaly Skin: dressings intact over abdominal wall Psychiatric: A+Ox3, euthymic affect Results & Data Vital Signs (Past 12 Hours) Vital Signs Temp Pulse Pulse Resp BP Pulse Ox 03/08/19 18:25 37 C 75 16 120/70 94 03/08/19 17:20 37.2 C 72 16 122/69 95 03/08/19 16:25 37.2 C 76 16 117/68 94 03/08/19 15:53 37.5 C 79 16 116/68 93 03/08/19 15:25 37.0 C 80 16 131/77 03/08/19 15:15 79 17 137/69 93 03/08/19 15:05 37.1 C 78 18 134/74 93 03/08/19 14:55 76 19 144/70 H 93 03/08/19 14:45 75 18 147/85 H 96 03/08/19 14:35 78 16 140/77 96 03/08/19 14:25 81 17 158/73 H 100 03/08/19 14:15 71 18 154/74 H 100 03/08/19 14:06 36.3 C L 70 16 131/72 99 Laboratory Results Laboratory Results - last 24 hr 03/07/19 03/08/19 03/08/19 18:15 06:14 06:14 WBC 7.08 RBC 4.05 L Hgb 12.2 Hct 36.2 L MCV 89.4 MCH 30.1 MCHC 33.7 RDW Std Deviation 41.7 RDW Coeff of Red 12.8 Plt Count 247 MPV 10.1 Immature Gran % (Auto) 0.1 Neut % (Auto) 65.2 Lymph % (Auto) 21.9 Fisher % (Auto) 8.3 Eos % (Auto) 4.1 Baso % (Auto) 0.4 Immature Gran # (Auto) 0.01 Neut # (Auto) 4.61 Lymph # (Auto) 1.55 Fisher # (Auto) 0.59 Eos # (Auto) 0.29 Baso # (Auto) 0.03 Sodium 140 Potassium 3.4 L Chloride 111 H Carbon Dioxide 25 Anion Gap 4.0 BUN 12 Creatinine 0.78 Est Cr Clr Drug Dosing 77.2 Est GFR ( Amer) 99.9 Est GFR (Non-Af Amer) 86.2 BUN/Creatinine Ratio 14.9 Glucose 91 Calcium 8.2 L Total Bilirubin 0.5 AST 24 ALT 26 Alkaline Phosphatase 77 Total Protein 6.6 Albumin 2.7 L Globulin 3.9 Albumin/Globulin Ratio 0.7 L Urine Test Negative PG Care Time/CCT Total # of Minutes Spent Total Time Spent with Patient: Total time spent is greater than 50% in coordination of care (as documented) at patient's floor/unit and/or counseling patient: (1) Depression Depression Type: other depression Qualified Code(s): F32.89 - Other specified depressive episodes
[2019-03-08] MEDS ORDERED: ZOLPIDEM TARTRATE 5 MG TAB PO PRN (21:00)
[2019-03-08] MEDS: LACTATED RINGER'S 1,000 ML IV SCH (21:34)
[2019-03-09] MEDS: CEFUROXIME IV SCH ×3 (04:22→19:59)
[2019-03-09] MEDS: DEXTROSE 5% IV SCH ×3 (04:22→19:59)
[2019-03-09] MEDS: metroNIDAZOLE 500 MG/100 ML BAG IV SCH ×3 (04:23→21:02)
[2019-03-09] MEDS: LACTATED RINGER'S 1,000 ML IV SCH ×2 (05:25→13:54)
[2019-03-09 07:23] LABS: BUN Creatinine Ratio 12.2 (10-20); Calcium 7.8 mg/dl (8.5-10.1); Creatinine Clr Calc Pharmacy 75.3 ml/min; Est GFR (African American) 96.9; Est GFR (Non-African American) 83.6; Magnesium 1.6 mg/dl (1.8-2.4); Potassium 3.4 mmol/L (3.5-5.1)
[2019-03-09] MEDS ORDERED: POTASSIUM CHLORIDE 20 MEQ TABCR PO STA (07:39)
[2019-03-09] MEDS: MAGNESIUM SULFATE / D5W 1 GM/100 ML BAG IV SCH ×2 (07:54→09:08)
[2019-03-09] MEDS: ONDANSETRON INJ 2 MG/ML 2 ML VIAL IV PRN ×2 (08:08→16:11)
[2019-03-09] MEDS: LORATADINE 10 MG TAB PO SCH (08:13)
[2019-03-09] MEDS: ESCITALOPRAM OXALATE 20 MG TAB PO SCH (08:13)
[2019-03-09] MEDS: CHOLECALCIFEROL 1,000 UNITS TAB PO SCH (09:12)
[2019-03-09] MEDS: FAMOTIDINE 20 MG in SYRINGE 3 ML IV SCH (10:18)
--- NOTE | 2019-03-09 12:26 | Surgery Progress Note ---
Date of Service March 09, 2019 Assessment & Plan (1) Acute cholecystitis: some nausea; con't IVF IV abx one more day; home without antibiotics in AM if does well advance diet as tolerated discharge in AM appt my clinic 2 weeks no strenuous activity; diet as tolerated Subjective acutely inflamed gallbladder some nausea IV abx one more day; home without antibiotics in AM if does well advance diet as tolerated Review of Systems Constitutional: no fever and no chills Respiratory: no dyspnea Cardiovascular: no chest pain Gastrointestinal: + abdominal pain and + nausea; no vomiting Physical Exam Constitutional: well developed and well nourished Respiratory: normal respiratory effort Cardiovascular: RRR, no murmur, no edema Gastrointestinal (Abdomen): Inspection/Auscultation: abdomen normal to inspection and normal bowel sounds; abdomen not distended Percussion/Palpation: + abdomen tender Results & Data Vital Signs (Past 12 Hours) Vital Signs Temp Pulse Resp BP BP Pulse Ox 03/09/19 11:05 37.2 C 68 16 137/77 96 03/09/19 07:29 37.4 C 66 16 118/62 95 03/09/19 04:00 37.1 C 72 16 128/66 97
[2019-03-09] MEDS ORDERED: cefOXitin 2,000 MG in DEXTROSE 5% 50 ML IV SCH (12:30)
[2019-03-09] MEDS: PROMETHAZINE HCL 12.5 MG in SODIUM CHLORIDE 0.9% 50 ML IV PRN (13:31)
--- NOTE | 2019-03-09 14:06 | Hospitalist Progress Note ---
Date of Service March 09, 2019 Assessment & Plan (1) Acute cholecystitis: POD #1 - s/p lap kaila by Dr Fleming. cont clear liquid diet. cont IV abx today; d/c them tomorrow. IVF; replace electrolytes. Repeat BMP/mag in am. Appreciate surgery assistance. (2) Reflux esophagitis: IV H2 jyoti (3) Pulmonary nodule seen on imaging study: Multiple nodules seen on CTA chest - largest 4mm. No prior h/o tobacco use thus low risk. According to guidelines may not need f/u CT scan. (4) Depression: cont lexapro (5) Hypokalemia: replace, repeat BMP in am (6) Hypomagnesemia: replace 2 grams IV mag; repeat mag level am no d/c today per gen surg hopefully d/c tomorrow Subjective patient had "rough night" with pain, nausea. received IV morphine; feels better - was able to eat some breakfast this am. no vomiting. passing flatus; no stool yet. Review of Systems Constitutional: no fever Respiratory: no cough and no dyspnea Cardiovascular: no chest pain Gastrointestinal: + abdominal pain and + nausea Physical Exam Constitutional: well developed and well nourished; no acute distress and no altered mental status ENMT: external ear and nose normal, oropharynx normal Respiratory: normal respiratory effort, lungs clear to auscultation Cardiovascular: Rate/Rhythm: regular rate and regular rhythm Heart Sounds: normal S1 and normal S2; no murmur Vessels: posterior tibial pulses present and dorsalis pedis pulses present; no JVD Extremities: no edema Gastrointestinal (Abdomen): Inspection/Auscultation: abdomen not distended and + abnormal bowel sounds (decreased ) Percussion/Palpation: + abdomen tender (incisional - mainly RLQ incision); no guarding and no hepatosplenomegaly Psychiatric: A+Ox3, euthymic affect Results & Data Vital Signs (Past 12 Hours) Vital Signs Temp Pulse Resp BP BP Pulse Ox 03/09/19 11:05 37.2 C 68 16 137/77 96 03/09/19 07:29 37.4 C 66 16 118/62 95 03/09/19 04:00 37.1 C 72 16 128/66 97 Laboratory Results Laboratory Results - last 24 hr 03/09/19 06:04 Sodium 139 Potassium 3.4 L Chloride 110 H Carbon Dioxide 28 Anion Gap 1.0 L BUN 10 Creatinine 0.80 Est Cr Clr Drug Dosing 75.3 Est GFR ( Amer) 96.9 Est GFR (Non-Af Amer) 83.6 BUN/Creatinine Ratio 12.2 Glucose 95 Calcium 7.8 L Magnesium 1.6 L PG Care Time/CCT Total # of Minutes Spent Total Time Spent with Patient: Total time spent is greater than 50% in coordination of care (as documented) at patient's floor/unit and/or counseling patient: (1) Depression Depression Type: other depression Qualified Code(s): F32.89 - Other specified depressive episodes
[2019-03-09] MEDS: OXYCODONE/ACETAMINOPHEN 5mg/325mg TAB PO PRN (16:09)
[2019-03-09] MEDS: FAMOTIDINE 20 MG TAB PO SCH (21:02)
[2019-03-10] MEDS: LACTATED RINGER'S 1,000 ML IV SCH (04:04)
[2019-03-10] MEDS: DEXTROSE 5% IV SCH (04:04)
[2019-03-10] MEDS: metroNIDAZOLE 500 MG/100 ML BAG IV SCH (04:04)
[2019-03-10] MEDS: CEFUROXIME IV SCH (04:04)
[2019-03-10] MEDS: ONDANSETRON INJ 2 MG/ML 2 ML VIAL IV PRN (05:25)
[2019-03-10] MEDS: OXYCODONE/ACETAMINOPHEN 5mg/325mg TAB PO PRN (05:25)
[2019-03-10 07:07] LABS: BUN Creatinine Ratio 7.4 (10-20); Calcium 8.2 mg/dl (8.5-10.1); Creatinine Clr Calc Pharmacy 92.6 ml/min; Est GFR (African American) 116.7; Est GFR (Non-African American) 100.7; Magnesium 1.8 mg/dl (1.8-2.4); Potassium 3.6 mmol/L (3.5-5.1)
[2019-03-10] MEDS: LORATADINE 10 MG TAB PO SCH (08:36)
[2019-03-10] MEDS: ESCITALOPRAM OXALATE 20 MG TAB PO SCH (08:36)
[2019-03-10] MEDS: CHOLECALCIFEROL 1,000 UNITS TAB PO SCH (08:36)
[2019-03-10] MEDS ORDERED: PREMPRO PO SCH (09:00)
[2019-03-10] MEDS: FAMOTIDINE 20 MG TAB PO SCH (09:01)
--- NOTE | 2019-03-10 09:46 | Discharge Summary ---
Date of Service March 10, 2019 Admission HPI Per Admitting Provider 53-year-old female says that around 10:30 PM last night she had the feeling of "indigestion". She has had similar feeling about 3 times in the past 2 months. She was able to get some sleep but woke up with the same discomfort. This progressively worsened to include nonbloody but positive bilious nausea and vomiting this a.m. Presently points to her epigastric and bilateral upper quadrants as site of discomfort. Denies any diarrhea and had a normal bowel movement this morning. No recent fevers or known recent illness. Denies any known previous gallbladder issues, urinary symptoms, chest pain or shortness of breath, or other acute concerns. - Past medical history includes insomnia, depression, reflux esophagitis, menorrhagia, diverticulosis. - Past surgical history includes tubal ligation, breast surgery. - Social history includes denying tobacco use. Occasional beer drinker on the weekends. Lives with daughter. Works as [employer]. Principal Diagnosis Acute Cholecystitis S/P Lap Yady Discharge Exam Constitutional WD/WN, vitals as above Eyes + anicteric sclerae ENMT Ears: no hearing impairment Mouth: oral mucous membranes not dry Neck trachea midline Respiratory normal respiratory effort, lungs clear to auscultation Cardiovascular RRR, no murmur, no edema Gastrointestinal (Abdomen) Inspection/Auscultation: normal bowel sounds Percussion/Palpation: abdomen soft; abdomen nontender lap yady incisions with dressings applied C/D/I Musculoskeletal no cyanosis or clubbing, extremities motor strength 5/5 Skin no rashes, warm and dry Neurologic moves all extremities Psychiatric A+Ox3, euthymic affect Discharge Data Allergies Allergy/AdvReac Type Severity Reaction Status Date / Time No Known Drug Allergies Allergy Verified 03/07/19 15:14 Consultations 03/07/19 15:43 ED Decision to Admit Stat 03/07/19 18:11 Consult General Surgery Routine Procedures Performed Operation Date: 03/08/19 13:00 Actual Procedures p Laparoscopic Cholecystectomy - Kenyon Fleming MD Ordered Studies 03/07/19 14:03 US gallbladder Stat 03/07/19 14:32 CT angio chest PE protocol Stat Hospital Course (1) Acute cholecystitis: - S/P Lap Yady by Dr. Fleming - pain improving and tolerating diet - Treated with emperic antibiotics during admission. D/C'd Abx on admission - Instructions provided on D/C and plans for F/U in 2 weeks with surgical team - Remains afebrile and without leukocytosis (2) Pulmonary nodule seen on imaging study: - Multiple nodules on CTA - largest at 4 mm - No prior H/O tobacco use and therefore low risk - according to guidelines may not need F/U but could perform at 12 months if deemed at higher risk (3) Depression: - Continue Lexapro 20 mg daily Total Time Total Time Spent Total Time Spent (In Minutes): Greater than 30 minutes Discharge Plan Discharge Items Patient Disposition: Home - Self-Care Reason For Visit: ABDOMINAL PAIN,CHOLELITHIASIS Discharge Diagnosis: Acute Cholecystitis Activity: Per Instructions section Non-emergency contact: Primary Care Provider and Surgeon Call non-emergency contact if: you have any medication questions, your symptoms worsen and you have a fever Follow-up/Referrals: Nathan Rocha III, CRNP [Primary Care Provider] - Diet: Low Fat Addtl Attending Provider Instructions: Post-Surgical ~ Discharge Instructions Activity Recommendations: - lifting limitation: (20 pounds for 3-4 weeks), - exercise/sex/sports limit: (nonstrenuous for 2 weeks), - driving or machine use limit: (none for 1 week), - Shower/bathe limit: (may shower) Diet: - Resume previous diet. Be mindful that high fat foods can cause some increased diarrhea for some people. Can aim for low fat foods and gradually can add higher fat foods into the diet as tolerated. SPECIAL CARE INSTRUCTIONS: - May shower. Let water run over area and pat dry. - Leave steri strips on for one week. - Call the surgeon's office with any questions or concerns - - (ex. temperature higher than 101 degrees F, excessive bleeding or pain). MEDICATIONS: - Resume previous medications unless instructed otherwise by your surgeon. - Percocet 1 every 4 hours, as needed for pain FOLLOW UP VISIT: - If not already scheduled, please call the office to schedule a two week follow-up appointment. Office number - Their address is [address] [place] [address]: - There were nodules on the CAT scan you had. You are at low risk for having any issues with these. Sometimes people develop these and they are not cancerous. Given that you are low risk for having lung issues you likely would not need a follow-up image given how small they are. But an optional 12 month follow-up scan can be completed to monitor for any changes Pending Studies at Discharge: Yes (gallbladder pathology, will be reviewed at follow-up visit) Stand-Alone Forms: Call Back Authorization, [facility], Opioid Pain Management, Smoking Cessation Medications and DC Order Prescriptions: New oxycodone-acetaminophen [Percocet] 5-325 mg Tablet 1 tab PO Q4H PRN (Reason: pain) 3 Days Qty: 18 RF: 0 Continued Premphase 0.625 mg (14)/ 0.625mg-5mg(14) tablet 1 tab PO DAILY Qty: 28 RF: 2 escitalopram oxalate 20 mg tablet 20 mg PO DAILY Qty: 90 RF: 1 zolpidem 6.25 mg tablet,ext release multiphase 6.25 mg PO HS PRN (Reason: sleep) Qty: 10 RF: 2 cholecalciferol (vitamin D3) 5,000 unit capsule 5,000 units PO DAILY Qty: 30 RF: 0 loratadine [Claritin] 10 mg tablet 10 mg PO DAILY RF: 0 Discharge Orders: Discharge Order (Routine); Ordered 03/10/19 Ordered By: Alee Valadez Admission Data Admit Date/Time: 03/07/19 16:50 Attending Provider: Chuy Merrill Admit Provider: Dean Olmedo Primary Care Provider: Nathan Rocha III Other Providers: Earle Bautista ; Alvaro Escalante Other Interventions: Discharge Summary Assessment (RN) Last Done: 03/10/19 10:08 DC Date/Time DO NOT enter until pt leaves facility: 03/10/19 10:55 Supervising Physician Co-Signing Physician Notes Attending note: patient seen and examined with Alee Valadez PA-C. I agree with her discharge summary. I personally reviewed the labs and imaging findings. Patient feeling much better after cholecystectomy. Limited pain, just post surgical tenderness. Tolerating diet, no fever, vitals stable. - Acute cholecystitis, s/p lap yady stable for discharge will follow up with Dr. Hegstrom in 2 weeks tolerating diet, pain controlled
== END 2019-03-10 10:55 | disposition home or self-care (01) ==
LOC: 3W 13:38 → ED 13:38 → SUATTDRO 16:50 → 3W 17:37